=== PATIENT | female | born 1965 | race Caucasian/White ===

== ENCOUNTER 2020-11-14 06:31 | Emergency (ER) | payer MEDICARE, MEDICAID ==
[~2020-11-14] VITALS: Ht 149.9 cm; Wt 102.2 kg
[2020-11-14] MEDS ORDERED: VITA100T15 PO (07:00)
[2020-11-14] MEDS ORDERED: LOSA100T50 PO (07:00)
[2020-11-14] MEDS ORDERED: CYCL-707 PO (07:00)
[2020-11-14] MEDS ORDERED: TIZA4CAP PO (07:00)
[2020-11-14] MEDS ORDERED: OLAN10TA12 PO (07:00)
[2020-11-14] MEDS ORDERED: EPIP0.3I2 IM (07:00)
[2020-11-14] MEDS ORDERED: LEVO137T2 PO (07:00)
[2020-11-14] MEDS ORDERED: CLONI1TA PO (07:00)
[2020-11-14] MEDS ORDERED: TRAZ1TAB14 PO (07:00)
[2020-11-14] MEDS ORDERED: COLA100C5 PO (07:00)
[2020-11-14] MEDS ORDERED: TORS5TAB2 PO (07:00)
[2020-11-14] MEDS ORDERED: LEVOTAB10 PO (07:00)
[2020-11-14] MEDS ORDERED: ASPI-256 PO (07:00)
[2020-11-14] MEDS ORDERED: PERCOCET 5MG/325MG TAB PO ONE (08:20)
[2020-11-14] MEDS ORDERED: LIDOCAINE 5% (LIDODERM) PATCH TD ONE (08:50)
[2020-11-14] MEDS ORDERED: LIDO5DIS41 TOP (09:46)
[2020-11-14 10:11] VITALS: BP 168/84
[2020-11-14] MEDS ORDERED: **NOTE PATIENT COMMENT** MISC XX SCH (21:00)
== END 2020-11-14 10:22 | disposition home or self-care (01) ==
LOC: M ED 06:31
DX: M54.42 Lumbago with sciatica, left side (principal); I11.0 Hypertensive heart disease with heart failure; E03.9 Hypothyroidism, unspecified; J44.9 Chronic obstructive pulmonary disease, unspecified; J45.909 Unspecified asthma, uncomplicated; Q05.9 Spina bifida, unspecified; R56.9 Unspecified convulsions; M06.9 Rheumatoid arthritis, unspecified; Z86.73 Personal history of transient ischemic attack (TIA), and cerebral infarction without residual deficits; F41.9 Anxiety disorder, unspecified; F33.9 Major depressive disorder, recurrent, unspecified; Z88.2 Allergy status to sulfonamides; Z79.899 Other long term (current) drug therapy

== ENCOUNTER 2023-06-12 17:02 | Emergency (ER) | payer MEDICARE, MEDICAID ==
[~2023-06-12] VITALS: Ht 152.4 cm; Wt 92.3 kg
[~2023-06-12 17:02] MED LIST: ASPI-256 PO; CLONI1TA PO; COLA100C5 PO; CYCL-707 PO; EPIP0.3I2 IM; LEVO137T2 PO; LEVOTAB10 PO; LIDO5DIS41 TOP; LOSA100T46 PO; OLAN10TA12 PO; TIZA4CAP PO; TORS5TAB2 PO; TRAZ1TAB14 PO; VITA100T15 PO
[2023-06-12] MEDS ORDERED: GABA-1171 PO (17:21)
[2023-06-12] MEDS ORDERED: BENA25CA4 PO (17:21)
[2023-06-12] MEDS ORDERED: HALO10AM IM (17:21)
[2023-06-12 18:49] LABS: BASO % 0.4 % (0.0-1.0); EOS # 0.1 10^3/uL (0.0-0.5); EOS % 0.8 % (0.0-3.0); HEMATOCRIT 38.2 % (36.0-47.0); HEMOGLOBIN 13.3 g/dl (12.0-15.5); LYMPH # 1.8 10^3/uL (1.5-5.0); LYMPH % 24.2 % (24.0-44.0); MEAN CORPUSCULAR HEMOGLOBIN 27.7 pg (27.0-33.0); MEAN CORPUSCULAR HGB CONC 34.8 g/dl (32.0-36.5); MEAN CORPUSCULAR VOLUME 79.6 fl (80.0-96.0); MONO # 0.6 10^3/uL (0.0-0.8); MONO % 8.7 % (2.0-8.0); NEUTROPHILS # 4.8 10^3/uL (1.5-8.5); NEUTROPHILS % 65.2 % (36.0-66.0); PLATELET COUNT, AUTOMATED 266 10^3/uL (150-450); WHITE BLOOD COUNT 7.3 10^3/uL (4.0-10.0)
[2023-06-12 19:10] LABS: LIPASE 36 U/L (12-53)
[2023-06-12 19:12] LABS: ALBUMIN 4.1 G/DL (3.2-5.2); ALKALINE PHOSPHATASE 125 U/L (46-116); ALT/SGPT 43 U/L (7.0-40); AST/SGOT 26 U/L (<34); BILIRUBIN,DIRECT < 0.1 MG/DL (<0.4); BILIRUBIN,TOTAL 0.3 MG/DL (0.3-1.2); TOTAL PROTEIN 6.5 G/DL (5.7-8.2)
[2023-06-12 19:13] LABS: BLOOD UREA NITROGEN 15 MG/DL (9-23); CALCIUM LEVEL 9.4 MG/DL (8.3-10.6); CARBON DIOXIDE LEVEL 25 MMOL/L (20-31); CHLORIDE LEVEL 101 MMOL/L (98-107); GLOMERULAR FILTRATION RATE > 60.0 (>45); GLUCOSE, FASTING 111 MG/DL (74-106); POTASSIUM SERUM 4.5 MMOL/L (3.5-5.1); SODIUM LEVEL 135 MMOL/L (136-145)
[2023-06-12] MEDS ORDERED: NS 1,000 ML IV ONE (20:05)
[2023-06-12] MEDS ORDERED: MORPHINE 4 MG/ML 1ML VIAL IV ONE (20:05)
[2023-06-12] MEDS ORDERED: amLODIPine 5 MG TAB PO ONE (21:10)
[2023-06-12 21:40] VITALS: TEMP 98.6
[2023-06-12 22:09] VITALS: BP 182/83
[2023-06-12] MEDS ORDERED: methylPREDNISolone 125MG 2ML VIAL IM ONE (22:50)
[2023-06-12] MEDS ORDERED: TRAZ-257 PO (23:27)
[2023-06-12] MEDS ORDERED: HALD50IN4 IM (23:28)
[2023-06-12] MEDS ORDERED: ASPI-161 PO (23:28)
[2023-06-12] MEDS ORDERED: PANT40TA29 PO (23:31)
[2023-06-12] MEDS ORDERED: ESSE250T PO (23:31)
[2023-06-12] MEDS ORDERED: CIDA500T2 PO (23:31)
[2023-06-12] MEDS ORDERED: ACET-683 PO (23:31)
[2023-06-12] MEDS ORDERED: HOME MED LIST COMPLETE! XX SCH (23:40)
[2023-06-13] MEDS ORDERED: ANEXSIA, NORCO 7.5MG/325MG TABLET(HYDROCODONE/APAP) PO ONE (00:45)
[2023-06-13] MEDS ORDERED: MEDR4PAK PO (00:46)
[2023-06-13] MEDS ORDERED: HYDR-3713 PO (00:46)
[2023-06-13 01:00] VITALS: BP 182/98
[2023-06-13 02:00] VITALS: O2SAT 95
== END 2023-06-13 01:15 | disposition home or self-care (01) ==
LOC: EDBD 17:02 → M ED 17:02
DX: M51.26 Other intervertebral disc displacement, lumbar region (principal); J44.9 Chronic obstructive pulmonary disease, unspecified; F41.9 Anxiety disorder, unspecified; M06.9 Rheumatoid arthritis, unspecified; E07.9 Disorder of thyroid, unspecified; Z88.2 Allergy status to sulfonamides; Z88.6 Allergy status to analgesic agent; Z88.8 Allergy status to other drugs, medicaments and biological substances; Z79.1 Long term (current) use of non-steroidal anti-inflammatories (NSAID); Z79.82 Long term (current) use of aspirin; Z79.891 Long term (current) use of opiate analgesic; Z79.899 Other long term (current) drug therapy
CPT/HCPCS: 72131; 74176; 80048; 80076; 83690; 85025; 96361; 96372; 96374; 99284; J2930